=== PATIENT | female | born 1965 | race African-American/Black ===

== ENCOUNTER 2021-03-14 17:04 | Emergency (ER) | payer BC ==
[2021-03-14 17:20] VITALS: BP 142/85; PULSE 73; TEMP 98.5; BMI 29.2
[2021-03-14] MEDS ORDERED: ACETAMINOPHEN/CAFFEINE/BUTALBITAL 1 TAB PO ONE (17:46)
[2021-03-14] MEDS ORDERED: ACETAMINOPHEN/CAFFEINE/BUTALBITAL 1 TAB ONE (17:48)
== END 2021-03-14 19:04 | disposition home or self-care (01) ==
LOC: JER 17:04
DX: H11.31 Conjunctival hemorrhage, right eye (principal); R51.9 Headache, unspecified
CPT/HCPCS: 70450-TC; 99284-25